=== PATIENT | female | born 1925 | race Caucasian/White ===

== ENCOUNTER 2016-09-19 14:50 | Inpatient (IN) | payer OTHER ==
[~2016-09-19] VITALS: Ht 165.1 cm; Wt 109.5 kg
--- NOTE | ~2016-09-19 | EKG ---
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
--- NOTE | ~2016-09-19 | H ---
[facility] [place] [address] HISTORY AND PHYSICAL Name: WERNER JENSEN Room #: 461-P ADM IN M.R.#: [id number] Admission: 09/19/16 Attend Phys: Andriy Etienne MD Discharge: Date of : [birth year] Report #: [id number] THIS REPORT FOR: //name// CC: Catarina Etienne DATE OF SERVICE: 09/19/2016 CHIEF COMPLAINT: Weakness, generalized weakness particularly more on the left side, cough. HISTORY OF PRESENT ILLNESS: The patient is an 89-year-old female with history of coronary artery disease, status post stent, history of DVT in the past, history of CVA with mild residual left-sided weakness, presented to the Emergency Room because of increasing left-sided weakness and fall. Symptoms started a week ago with progressively worsening shortness of breath, apparently she fell a couple of times in the last few days. She normally is able to use a walker to ambulate from a chair to the rest room with assistance, but has increasing difficulty. The visiting nurse today had greater difficulty and was referred to the Emergency Room. She has also had a cough, which is rattly with mild shortness of breath. She does have history of stroke and has mild weakness on the left side. Apparently, she has had increasing weakness in the left side over the last few days. PAST MEDICAL HISTORY: Significant for diabetes, she had 5 heart stents placed 1 year ago. She did develop a blood clot in the left leg postoperatively and has been on Pradaxa for the same. She has been on Plavix since she had the stents put in. Apparently, the Plavix was to be converted to baby aspirin in October. No history of any peptic ulcer disease, bleeding disorder. No history of any cancer. She has had shoulder surgery. She has had knee replacement. No history of any COPD. She does have a history of diabetes, history of CVA with mild residual weakness on the left side, hyperlipidemia. SOCIAL HISTORY: No smoke, alcohol abuse, or illicit drug abuse. FAMILY HISTORY: Significant for hypertension and diabetes. ALLERGIES: She is allergic to CYMBALTA, METHYLPHENIDATE, PENICILLIN, AND FLU VACCINE. Please look at the nursing documentation for reaction. HOME MEDICATIONS: Reviewed, please look at the nursing documentation for home medications. REVIEW OF SYSTEMS: [address] [address] HISTORY AND PHYSICAL Name: DIVIDE, [place] Room #: 1[facility] IN M.R.#: [id number] Admission: 09/19/16 Attend Phys: Andriy Etienne MD Discharge: Date of : [birth year] Report #: [id number] CONSTITUTIONAL: No recent weight loss, she has gained some weight. She denies any fever or chills. EYES: No change in vision. THROAT: Denies any sore throat. CARDIOVASCULAR: No chest pain, no dizziness or palpitation. RESPIRATORY: She has had some increasing wheeze over the last day or so with cough, which is nonproductive. The patient denies any chest pain. GASTROINTESTINAL: No nausea or vomiting. GENITOURINARY: No dysuria or hematuria. NEUROLOGIC: As above. The 12-point review of system is negative other than the positive and the negative dictated in the history of present illness and in the review of system. PHYSICAL EXAMINATION: VITAL SIGNS: Blood pressure 137/58, heart rate of 60 per minute, afebrile. The patient is awake and alert, not in acute respiratory distress. She is uncomfortable with a cough. HEENT: Pupils equal, reactive to light. Throat, she has a mildly dry oral mucosa. NECK: Supple, no JVD, no bruit, no lymphadenopathy. CARDIOVASCULAR SYSTEM: S1, S2, negative S3, no murmur. CHEST: Bilateral air entry present, bilateral scattered wheeze present, no crackles. ABDOMEN: Soft, bowel sounds present, no mass, no organomegaly, no tenderness. PERIPHERY: She has trace pedal edema on the right side, 1+ on the left side. According to the patient's daughter, she has had chronic left leg swelling. NEUROLOGICAL: Speech is normal. Pupils are equal, reactive to light. No facial asymmetry noted. Power is 5/5 in upper extremity. Power is 5/5 on the right leg and 4/5 on the left leg. LABORATORY DATA: Labs reviewed. CT scan of the brain showed no acute abnormality. A chest x-ray showed no acute abnormality. White count is 6.2, normal hemoglobin, hematocrit and platelets. Coagulation studies are normal with INR 1.2. The BUN and creatinine are 14 and 1.2, blood glucose is 298, AST and ALT are within normal limit. Albumin is 3.1. UA revealed positive blood, 0 WBC. EKG showed sinus rhythm, minimal ST segment depression in the lateral leads. ASSESSMENT AND PLAN: 1. Increasing left-sided weakness, most likely such stroke symptoms could have been exhibited by a viral illness. The patient will be placed on neuro check. We will consult neurologist, Dr. Lowery. We will consider further evaluation including MRI in the morning. [address] [address] HISTORY AND PHYSICAL Name: WERNER JENSEN Room #: 461-P ADM IN M.R.#: [id number] Admission: 09/19/16 Attend Phys: Andriy Etienne MD Discharge: Date of : [birth year] Report #: [id number] 2. Viral illness with acute bronchitis. The patient will be started on p.o. azithromycin. We will also continue with DuoNebs and p.o. prednisone. 3. Diabetes. We will check an A1c level. We will also place him on a sliding scale insulin. The patient will be continued on Levemir at night. 4. History of hypertension. The patient will be continued on Coreg. 5. History of dyslipidemia. The patient will be continued on statin. 6. History of coronary artery disease, status post stent. The patient is on Plavix, this will be continued. 7. History of deep venous thrombosis in the past. The patient is on Pradaxa, this will be continued. 8. Deep venous thrombosis prophylaxis. The patient is already on Pradaxa. We will consult physical and occupational therapy and social service. Treatment plan has been explained to the patient and the family in detail. The patient is do not resuscitate as per patient and patient's daughter's wish. <ELECTRONICALLY SIGNED> By: Andriy Etienne MD 09/19/16 1906 1805 1853 Andriy Etienne MD /nt
--- NOTE | ~2016-09-19 | HC ---
[facility] [place] [address] CONSULTATION Name: WERNER JENSEN Room #: 461-P [facility] IN M.R.#: [id number] Admission: 09/19/16 Attend Phys: Andriy Etienne MD Discharge: 09/24/16 Date of : [birth year] Report #: [id number] THIS REPORT FOR: //name// CC: Catarina Etienne DATE OF SERVICE: 09/23/2016 HISTORY OF PRESENT ILLNESS: We were asked to see this patient. The patient is an 89-year-old admitted on 09/19/2016 with weakness. The patient has a history of left-sided weakness from a stroke, but typically the patient was able to use a walker. We know that the patient was found "down" by daughter twice and this led to admission. Most of this history is from the chart as the patient is a somewhat weak historian (the patient does not know her own age). The patient does state that she developed a cough prior to admission and in the hospital a diagnosis has been made of influenza A. We also note that a carotid duplex was done and evaluation of the new weakness and this showed a high-grade right internal carotid artery stenosis. No other imaging study has been done. CT scan of the brain showed no acute changes, MRI revealed moderate atrophy with areas of encephalomalacia adjacent to right ventricle that have a chronic appearance. PAST MEDICAL HISTORY: Significant for a stroke in 08/2015 with residual left-sided weakness, coronary stents, hypertension, hypercholesterolemia and "bad right knee." MEDICATIONS: At home includes amlodipine, vitamin B12, calcium, Lasix, levothyroxine, liothyronine (Cytomel), pregabalin, saxagliptin, Plavix, sertraline, carvedilol, potassium, dabigatran, insulin, melatonin, pravastatin, acetaminophen, hydrocodone, nystatin and pantoprazole. ALLERGIES: DULOXETINE, METHYLPHENIDATE, PENICILLIN, FLU VACCINE. SOCIAL HISTORY: Smoker in her youth. REVIEW OF SYSTEMS: CONSTITUTIONAL: No fever or chills. No weight change. EYES: No eye pain, visual change, wears glasses. HEENT: No hearing changes, ear drainage, neck pain or neck stiffness. RESPIRATORY: As mentioned cough, no sputum. CARDIAC: No chest pain, no palpitations. GASTROINTESTINAL: No nausea, vomiting or diarrhea. GENITOURINARY: No burning, frequency or dysuria. MUSCULOSKELETAL: No bone or joint or back pain. SKIN: No rash or infection. [facility] [address] [place] [address] CONSULTATION Name: CAMILAWERNER Room #: 461-P [facility] IN M.R.#: [id number] Admission: 09/19/16 Attend Phys: Andriy Etienne MD Discharge: 09/24/16 Date of : [birth year] Report #: [id number] NEUROLOGIC: Left-sided weakness, status post stroke that seems to have increased somewhat recently. PHYSICAL EXAMINATION: VITAL SIGNS: Blood pressure 141/65, heart rate 64, respiratory rate 22, temperature 36.6, O2 sat 95 on room air. HEENT: No scleral icterus, no arcus, normocephalic, gaze conjugate. Pupils are equal, round and reactive. NECK: No lymphadenopathy, I can hear no bruit. CHEST: Decreased breath sounds. No adventitious sounds heard. HEART: Rhythm regular rate, as described heart tones are distant. ABDOMEN: Soft, protuberant, no mass, no tenderness. EXTREMITIES: No clubbing or cyanosis, trace edema, 2+ dorsalis pedis pulses bilaterally. SKIN: No rash or infection. MUSCULOSKELETAL: No bone or joint dyssymmetry or deformity. NEUROLOGIC: No obvious motor or sensory dysfunction. The patient appears alert and appropriate, but as mentioned, does not know her own age to a high degree of accuracy. ASSESSMENT: The patient has evidence of a high grade right internal carotid stenosis and a history of a right-sided stroke, not clear that this is new in view of her history, but when her general health permits, I would obtain an imaging study such as a CT angiogram and if a high grade lesion is seen, then we should discuss whether carotid endarterectomy is appropriate. <ELECTRONICALLY SIGNED> By: Nahum Trammell MD 10/07/16 1224 170 56 Nahum Trammell MD /nt
--- NOTE | ~2016-09-19 | HC ---
[facility] [place] [address] CONSULTATION Name: WERNER JENSEN Room #: 461-P [facility] IN M.R.#: [id number] Admission: 09/19/16 Attend Phys: Andriy Etienne MD Discharge: 09/24/16 Date of : [birth year] Report #: [id number] THIS REPORT FOR: //name// CC: Catarina Etienne HISTORY OF PRESENT ILLNESS: The patient is an 89-year-old white female who had a prior history of a CVA with residual left-sided weakness in August 2015. The patient has been living with her daughter and has been able to get up and walk to the commode utilizing a gait belt with min standby assistance. She has had a significant decline in her condition with worsening left-sided weakness. CT of the head was negative for any acute changes. She also has had problems with a "rattly cough." She was thought to have a comorbid viral urinary tract infection. Impression upon admission is that of unilateral weakness with increased left-sided weakness along with a vital illness with acute bronchitis. We are seeing her in rehabilitation medicine consultation. PAST MEDICAL HISTORY: Includes stroke in August 2015 with left-sided weakness residual, coronary artery stenting, hypertension, elevated cholesterol, and right knee degenerative arthritis. MEDICATIONS: Please see the full medication listing. ALLERGIES: CYMBALTA, RITALIN, PENICILLIN, AND FLU VACCINE. SOCIAL HISTORY: As noted above. Lives in a basement studio of her daughter's house. Please see the above as the daughter did assist the patient premorbidly. No steps apparently. REVIEW OF SYSTEMS: Did not offer any current complaints of chest pain, shortness of breath or abdominal discomfort. Notes she has the degenerative arthritis of her knees. PHYSICAL EXAMINATION: GENERAL: An 89-year-old overweight white female, in no obvious distress. The patient is alert and pleasant. VITAL SIGNS: Last recorded temperature 98.3, pulse 58, respirations 22, and blood pressure 145/59. HEENT: She does have some depressed left nasolabial fold. She was not short of breath during my examination. EXTREMITIES: Left-sided weakness is probably a grade 4-/5 upper and lower extremity. Right upper extremity is more of a grade 4+ to 4 and right lower extremity is 4+ to 4. No focal calf swelling. She has some mild decreased coordination of the left upper and left lower extremity. Functionally, she has been max assist with sit to stand and has fair sitting balance. Max assist with supine to sit. [facility] [address] [place] [address] CONSULTATION Name: CAMILAWERNER Room #: 461-P [facility] IN M.R.#: [id number] Admission: 09/19/16 Attend Phys: Andriy Etienne MD Discharge: 09/24/16 Date of : [birth year] Report #: [id number] ASSESSMENT: An 89-year-old white female with the following problem list: 1. Increase left-sided weakness. 2. Prior history of a cerebrovascular accident with residual left-sided weakness in August 2015. 3. Viral illness with acute bronchitis. 4. Diabetes mellitus. 5. Hypertension. 6. Dyslipidemia. 7. History of coronary artery disease. 8. History of deep venous thrombosis in the past. PLAN: The patient has had a definite declined as far as her functional level and is needing more assistance currently than she did previously. She may be a candidate for an acute in-hospital inpatient rehabilitation stay regarding her rehab therapy needs. We will follow along with you. <ELECTRONICALLY SIGNED> By: Tucker Mackay MD 10/08/16 1617 1438 2231 Tucker Mackay MD /nt
--- NOTE | ~2016-09-19 | HC ---
[facility] [place] [address] CONSULTATION Name: WERNER JENSEN Room #: 461-P ADM IN M.R.#: [id number] Admission: 09/19/16 Attend Phys: Andriy Etienne MD Discharge: Date of : [birth year] Report #: [id number] THIS REPORT FOR: //name// CC: Catarina Etienne DATE OF SERVICE: 09/22/2016 REASON FOR CONSULTATION: Right knee pain. REQUESTING PHYSICIAN: Dr. Etienne with the Internal Medicine Service. PAST MEDICAL HISTORY: Carotid stenosis, stroke with left-sided hemiparesis, coronary artery disease status post cardiac stents, right knee osteoarthritis, hypertension. PAST SURGICAL HISTORY: Cardiac stents. CURRENT MEDICATIONS: Inpatient are albuterol treatments, Lipitor, Tamiflu, prednisone, sertraline, potassium chloride, pantoprazole, furosemide, Plavix, vitamin D, Synthroid, Lyrica, melatonin, sliding scale insulin, Pradaxa, carvedilol, amlodipine, Levaquin, hydrocodone. FAMILY HISTORY: Noncontributory. ALLERGIES: FLU VACCINE AND PENICILLIN. SOCIAL HISTORY: The patient has been staying with her daughter. She denies any substance abuse. She has used cigarettes in the past. REVIEW OF SYSTEMS: Positive for weakness, particularly on the left side and falling as well as persistent right knee pain. No fever, chills or abdominal discomfort today. HISTORY OF PRESENT ILLNESS: The patient is an 89-year-old female who was admitted to the hospital several days ago with a history of left-sided weakness following a stroke she has had previously. According to her daughter, she had done adequate job of rehabilitating but had a regression recently. She suffers from advanced osteoarthritis of the right knee, which is the neurologically better side and so when the right knee gives out she has difficulty maintaining her balance. She has chronic right knee pain and was indicated by her orthopedic surgeon in [place] for right total knee arthroplasty but in the workup, she was found to not be a candidate medically and has had a series of medical issues and procedures including cardiac stents, stroke and identification of carotid stenosis that may need to be treated as well. She had a corticosteroid injection in spring. She has had at least [address] [address] CONSULTATION Name: CAMILAFLORIDA Room #: 461-P ADM IN M.R.#: [id number] Admission: 09/19/16 Attend Phys: Andriy Etienne MD Discharge: Date of : [birth year] Report #: [id number] have been effective, but the most recent has been perhaps less effective. However, her symptoms have worsened over the past month or two and she is interested in repeat trial of corticosteroid injection while in the hospital. The idea here is that the injection might reduce her right knee pain and facilitate her rehabilitation, which is the next phase of treatment for this present hospitalization. PHYSICAL EXAMINATION: VITAL SIGNS: Temperature 36.6, pulse 65, blood pressure is 176/52, respirations 20, pulse ox 95%. GENERAL: She is an obese, but otherwise healthy appearing female. She is comfortable, supine in the hospital bed. She answers questions appropriately. EXTREMITIES: Examination of her right lower extremity demonstrates no significant swelling, erythema or warmth to the right knee. She has trace effusion and has crepitus with passive range of motion. She has range of motion of 2 degrees of flexion to 110 degrees of flexion. There is pain with some range of motion. She is tender over the medial compartment particularly as well as the patellar facets. No evidence of any acute infectious process. She has a palpable pulse distally and dorsiflex and plantarflex is with sensation intact. RADIOGRAPHS: Nonweightbearing x-rays of the right knee, AP, lateral and merchant view demonstrate advanced osteoarthritic changes, particularly of the medial compartment where she has bone on bone changes and a resting varus deformity as well as narrowing of the patellofemoral joint space. IMPRESSION: An 89-year-old female with severe osteoarthritis of the right knee as well as a history of left-sided weakness secondary to previous stroke. PLAN: I think an injection is reasonable in these circumstances while inpatient to see if this can alleviate some of her right knee pain and facilitate physical therapy, so she can regain her strength on the left side. She will need to have these addressed in order for her to be safe for discharge back in the care of her daughter. Discussed the risks, benefits, alternatives and indications for the injection and she wished to proceed and I answered her questions. PROCEDURE NOTE: Under sterile conditions, the right knee was injected with the combination of 3 mL of 1% lidocaine without epinephrine and 80 mg of Depo-Medrol via lateral parapatellar approach. Intraarticular position was confirmed as a 23-gauge needle passed through the synovium and easily fluid flow was noted at the time of the injection. The patient tolerated well and there were no complications. Bandaid was applied at completion of the procedure. [facility] [address] [place] [address] CONSULTATION Name: WERNER JENSEN Room #: 461-P ADM IN M.R.#: [id number] Admission: 09/19/16 Attend Phys: Andriy Etienne MD Discharge: Date of : [birth year] Report #: [id number] There will be no restrictions on her post-injection. Hopefully, this does provide her with significant amount of improvement. <ELECTRONICALLY SIGNED> By: Steven Camacho MD 09/23/16 0715 1712 1827 Steven Camacho MD /nt
[2016-09-19 14:53] VITALS: BP 140/53
[2016-09-19] MEDS ORDERED: NORVASC2.5 MG PO (15:07)
[2016-09-19] MEDS ORDERED: LASIX 20 MG TAB20 MG PO (15:08)
[2016-09-19] MEDS ORDERED: LEVOTHYROXIN0.088 MG PO (15:08)
[2016-09-19] MEDS ORDERED: FOLBIC RF TABL1 EACH PO (15:08)
[2016-09-19] MEDS ORDERED: ONGLYZA5 MG PO (15:09)
[2016-09-19] MEDS ORDERED: LYRICA 75 MG CA75 MG PO (15:09)
[2016-09-19] MEDS ORDERED: CYTOMEL 25 MCG25 MC1 PO (15:09)
[2016-09-19 15:10] LABS: HEMATOCRIT 39.1 % (37.0-47.0); HEMOGLOBIN 13.2 gm/dL (12.0-15.0); MCH 29.2 pg (26.0-34.0); MCHC 33.8 % (28.0-37.0); MCV 86.3 fL (80.0-100.0); PLATELET COUNT 161 thou/uL (150-400); RBC 4.52 mil/uL (4.20-5.00); RDW 15.8 % (10.5-14.5); WBC 6.8 thou/uL (4.0-11.0)
[2016-09-19] MEDS ORDERED: PLAVIX 75 MG TA75 M1 PO (15:10)
[2016-09-19] MEDS ORDERED: CARVEDILOL12.5 MG PO (15:10)
[2016-09-19] MEDS ORDERED: KLOR-CON 1010 MEQ PO (15:10)
[2016-09-19] MEDS ORDERED: ZOLOFT50 MG PO (15:10)
[2016-09-19] MEDS ORDERED: VITAMIN D2000 UNIT PO (15:11)
[2016-09-19] MEDS ORDERED: LEVEMIR SUBQ (15:11)
[2016-09-19] MEDS ORDERED: PRADAXA150 MG PO (15:11)
[2016-09-19 15:12] LABS: MANUAL DIFF YES
[2016-09-19] MEDS ORDERED: MELATONIN5 M1 PO (15:14)
[2016-09-19] MEDS ORDERED: PRAVACHOL20 MG PO (15:14)
[2016-09-19] MEDS ORDERED: PROTONIX40 M1 PO (15:15)
[2016-09-19] MEDS ORDERED: NORCO 5-325 TA1 EACH PO (15:15)
[2016-09-19] MEDS ORDERED: TYLENOL325 MG PO (15:15)
[2016-09-19] MEDS ORDERED: NYAMYC15 GM TOP (15:15)
[2016-09-19 15:21] LABS: ANION GAP 12 mmol/L (7-16); BUN 14 mg/dL (7-18); CALCIUM 8.4 mg/dL (8.5-10.1); CHLORIDE 104 mmol/L (98-107); CO2 25 mmol/L (21-32); CREATININE 1.2 mg/dL (0.6-1.3); GLUCOSE 298 mg/dL (70-99); SODIUM 141 mmol/L (136-145)
[2016-09-19 15:23] LABS: INR 1.2; PROTIME 12.1 Seconds (9.3-11.4)
[2016-09-19 15:26] LABS: ALBUMIN 3.1 g/dL (3.4-5.0); ALKALINE PHOSPHATASE 90 U/L (46-116); SGOT 33 U/L (15-37); TOTAL BILIRUBIN 0.4 mg/dL (<0.1-1.0); TOTAL PROTEIN 6.5 g/dL (6.4-8.2); TROPONIN-I < 0.04 ng/mL (<0.04-0.07)
[2016-09-19 15:34] LABS: ABSOLUTE NEUTROPHILS 4.5 thou/uL (1.4-8.2); ANISOCYTOSIS 1+; TOTAL CELL COUNT 100
[2016-09-19 15:35] LABS: POLYCHROMASIA OCCASIONAL
[2016-09-19 16:18] LABS: URINE BILIRUBIN NEGATIVE (Negative); URINE BLOOD 2+ (Negative); URINE COLOR YELLOW; URINE GLUCOSE-RANDOM* 1+ (Negative); URINE KETONES NEGATIVE (Negative); URINE NITRITE NEGATIVE (Negative); URINE PROTEIN (DIPSTICK) NEGATIVE (Negative); URINE SPECIFIC GRAVITY 1.025 (1.003-1.035); URINE UROBILINOGEN 0.2 E.U./dl (0.2-1.0)
[2016-09-19 16:27] LABS: BACTERIA 1-9 Few /HPF (None Seen); CASTS None Seen /LPF (None Seen); CRYSTALS None Seen /LPF (None Seen); SQUAMOUS 4-10 Moderate /LPF (0-3); URINE RBC 3-10 Few /HPF (0-2); URINE WBC None Seen /HPF (0-5)
[2016-09-19 20:00] VITALS: BP 137/58; BP 141/96
[2016-09-19 23:10] LABS: SGPT 46 U/L (30-65)
[2016-09-20] VITALS (7 sets, daily range): BP systolic 131–150; BP diastolic 52–81
[2016-09-20 02:10] LABS: GLYCOHEMOGLOBIN (HGB A1C) 8.1 % (4.8-5.6)
[2016-09-20 06:26] LABS: ABSOLUTE NEUTROPHILS 5.3 thou/uL (1.4-8.2); BASOPHILS 0.3 % (0.0-2.0); HEMATOCRIT 38.3 % (37.0-47.0); HEMOGLOBIN 12.6 gm/dL (12.0-15.0); LYMPHOCYTES 10.9 % (24.0-44.0); MCHC 32.9 % (28.0-37.0); MCV 88.1 fL (80.0-100.0); MONOCYTES 3.5 % (1.0-8.0); PLATELET COUNT 146 thou/uL (150-400); POLYS 85.3 % (36.0-66.0); RBC 4.34 mil/uL (4.20-5.00); RDW 16.1 % (10.5-14.5); WBC 6.2 thou/uL (4.0-11.0)
[2016-09-20 06:27] LABS: MANUAL DIFF NO
[2016-09-20 07:07] LABS: ANION GAP 12 mmol/L (7-16); BUN 16 mg/dL (7-18); CALCIUM 8.5 mg/dL (8.5-10.1); CHLORIDE 107 mmol/L (98-107); CHOLESTEROL 140 mg/dL (<200); CO2 25 mmol/L (21-32); GLUCOSE 267 mg/dL (70-99); HDL CHOLESTEROL 45 mg/dL (>40); LDL CHOLESTEROL 79 mg/dL (<100); MAGNESIUM 1.8 mg/dL (1.8-2.4); POTASSIUM 3.9 mmol/L (3.5-5.1); SODIUM 144 mmol/L (136-145); TC:HDL 3.1 Ratio (Not establshd); TRIGLYCERIDE 84 mg/dL (<150); VLDL 17 mg/dL (<40)
[2016-09-21] VITALS (8 sets, daily range): BP systolic 138–150; BP diastolic 53–64
[2016-09-22 05:08] VITALS: BP 144/58
[2016-09-22 07:50] VITALS: BP 130/46
[2016-09-22 12:56] VITALS: BP 140/71
[2016-09-22 16:00] VITALS: BP 176/52
[2016-09-22 16:05] VITALS: BP 176/52
[2016-09-22 20:50] VITALS: BP 175/65
[2016-09-23 04:00] VITALS: BP 175/65
[2016-09-23 08:17] VITALS: BP 153/53
[2016-09-23 12:28] VITALS: BP 141/65
[2016-09-23] MEDS ORDERED: LEVAQUIN 500 M500 M9 PO (14:03)
[2016-09-23] MEDS ORDERED: LANTUSSOLASTAR SUBQ (14:07)
[2016-09-23] MEDS ORDERED: ROBITUSSIN DM118 ML PO (14:07)
[2016-09-23] MEDS ORDERED: DUONEB 2.5-0.5 M3 ML INH (14:07)
[2016-09-23] MEDS ORDERED: OSELB75 PO (14:07)
[2016-09-23] MEDS ORDERED: PREDNISONE 10 M10 M1 PO (14:15)
[2016-09-23 15:37] VITALS: BP 142/38
[2016-09-23 20:00] VITALS: BP 140/80
[2016-09-23 20:38] VITALS: BP 140/80
[2016-09-24 04:01] VITALS: BP 123/54
[2016-09-24 04:10] VITALS: BP 123/54
[2016-09-24 08:38] VITALS: BP 133/55
[2016-09-24 11:56] VITALS: BP 126/43
== END 2016-09-24 15:40 | DRG 193 ==
LOC: ER 14:50 → 4W 16:40 → EROBS 16:40 → 4W 17:10 → EROBS 17:10 → 4W 17:13
PROVIDERS: Internal Medicine; Physician Assistant
PROC: 3E0U3BZ Introduction of Anesthetic Agent into Joints, Percutaneous Approach (ICD-10-PCS; principal; 2016-09-22)
PROC: 3E0U33Z Introduction of Anti-inflammatory into Joints, Percutaneous Approach (ICD-10-PCS; principal; 2016-09-22)
DX: J10.1 Influenza due to other identified influenza virus with other respiratory manifestations (principal); G93.41 Metabolic encephalopathy; N39.0 Urinary tract infection, site not specified; I69.951 Hemiplegia and hemiparesis following unspecified cerebrovascular disease affecting right dominant side; E11.9 Type 2 diabetes mellitus without complications; E78.00 Pure hypercholesterolemia, unspecified; I10 Essential (primary) hypertension; M17.11 Unilateral primary osteoarthritis, right knee; E78.5 Hyperlipidemia, unspecified; Z96.659 Presence of unspecified artificial knee joint; M79.7 Fibromyalgia; G89.29 Other chronic pain; E03.9 Hypothyroidism, unspecified; J09.X2 Influenza due to identified novel influenza A virus with other respiratory manifestations; M48.06 Spinal stenosis, lumbar region; I25.10 Atherosclerotic heart disease of native coronary artery without angina pectoris; I65.29 Occlusion and stenosis of unspecified carotid artery; Z95.5 Presence of coronary angioplasty implant and graft; Z88.7 Allergy status to serum and vaccine; Z87.891 Personal history of nicotine dependence; Z86.718 Personal history of other venous thrombosis and embolism; Z79.02 Long term (current) use of antithrombotics/antiplatelets; Z90.49 Acquired absence of other specified parts of digestive tract; Z88.8 Allergy status to other drugs, medicaments and biological substances; Z88.0 Allergy status to penicillin; Z79.899 Other long term (current) drug therapy; Z82.49 Family history of ischemic heart disease and other diseases of the circulatory system; Z83.3 Family history of diabetes mellitus; Z79.2 Long term (current) use of antibiotics; Z91.040 Latex allergy status; I65.21 Occlusion and stenosis of right carotid artery
CPT/HCPCS: 10045